=== PATIENT | female | born 1945 | race Caucasian/White ===

== ENCOUNTER 2017-07-31 14:53 | Outpatient (CLI) | payer OTHER | END 2017-07-31 15:46 | disposition home or self-care (01) | LOC: RAD 14:53 | DX: M51.36 Other intervertebral disc degeneration, lumbar region (principal); Z98.1 Arthrodesis status ==

== ENCOUNTER 2018-01-28 11:00 | Inpatient (IN) | payer OTHER ==
[~2018-01-28] VITALS: Ht 162.6 cm; Wt 52.2 kg
[2018-01-28] MEDS ORDERED: COZAAR100 MG PO (16:02)
[2018-01-28] MEDS ORDERED: HYDRALAZINE HCL50 MG PO (16:02)
[2018-01-28] MEDS ORDERED: LEVO-T50 MCG PO (16:02)
[2018-01-28] MEDS ORDERED: ASA81 MG PO (16:03)
[2018-01-28] MEDS ORDERED: METFORMIN HCL500 MG PO (16:03)
[2018-02-06] MEDS ORDERED: COLACE100 MG PO (09:57)
[2018-02-06] MEDS ORDERED: CLONAZEPAM1 MG PO (09:58)
[2018-02-06] MEDS ORDERED: ACETAMINOPHEN-1 EAC2 PO (12:58)
== END 2018-02-07 13:00 | DRG 472 ==
LOC: O/R 02-05 05:20 → SURH 02-05 07:00 → PED 02-05 10:42 → SURH 02-05 11:00 → PED 02-07 13:00
PROVIDERS: Orthopaedic Surgery Orthopaedic Surgery of the Spine
PROC: 0RT30ZZ Resection of Cervical Vertebral Disc, Open Approach (ICD-10-PCS; 2018-02-05)
PROC: 07DS3ZZ Extraction of Vertebral Bone Marrow, Percutaneous Approach (ICD-10-PCS; 2018-02-05)
PROC: 0RG20A0 Fusion of 2 or more Cervical Vertebral Joints with Interbody Fusion Device, Anterior Approach, Anterior Column, Open Approach (ICD-10-PCS; principal; 2018-02-05 07:00)
DX: M47.12 Other spondylosis with myelopathy, cervical region (principal); M50.023 Cervical disc disorder at C6-C7 level with myelopathy; I10 Essential (primary) hypertension; E11.9 Type 2 diabetes mellitus without complications; E03.8 Other specified hypothyroidism

== ENCOUNTER 2020-06-08 16:22 | Outpatient (CLI) | payer OTHER ==
[~2020-06-08 16:22] MED LIST: ACETAMINOPHEN-1 EAC2 PO; ASA81 MG PO; CLONAZEPAM1 MG PO; COLACE100 MG PO; COZAAR100 MG PO; HYDRALAZINE HCL50 MG PO; LEVO-T50 MCG PO; METFORMIN HCL500 MG PO
== END 2020-06-08 16:32 | disposition home or self-care (01) ==
LOC: RAD 16:22
PROVIDERS: ATTEND Orthopaedic Surgery
DX: M25.562 Pain in left knee (principal); M25.552 Pain in left hip